=== PATIENT | male | born 1970 | race Two or more races ===

== ENCOUNTER 2023-09-24 10:56 | Emergency (ER) | payer MEDICAID, OTHER ==
[~2023-09-24] VITALS: Ht 185.4 cm; Wt 102.4 kg
[2023-09-24 13:24] VITALS: BP 126/71; PULSE 76; RESP 16; TEMP 97.4; O2SAT 97
[2023-09-24] MEDS ORDERED: FURO1TAB31 PO (13:24)
[2023-09-24] MEDS ORDERED: CYCL-837 PO (13:24)
[2023-09-24] MEDS ORDERED: IBUP-1456 PO (13:24)
== END 2023-09-24 13:32 | disposition home or self-care (01) ==
LOC: ER 10:56
DX: R60.0 Localized edema (principal); M54.32 Sciatica, left side